=== PATIENT | female | born 1960 | race Caucasian/White ===

== ENCOUNTER 2024-08-09 20:54 | Emergency (ER) | payer OTHER, SELFPAY ==
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
--- NOTE | ~2024-08-09 | XR_ITS ---
CLINICAL HISTORY: fall 2 view left knee Comparison: None Findings: Bones intact. No dislocations. Mild degenerative changes. No joint effusion. No radiopaque foreign body. IMPRESSION: 1. No acute findings. This document has been electronically signed by: Jose Nguyen MD on 08/09/2024 22:43:19
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
--- NOTE | ~2024-08-09 | XR_ITS ---
CLINICAL HISTORY: fall 2 view right knee Comparison: None Findings: Bones intact. No dislocations. Moderate degenerative changes. No joint effusion. No radiopaque foreign body. IMPRESSION: 1. No acute findings. This document has been electronically signed by: Jose Nguyen MD on 08/09/2024 22:43:13
[2024-08-09 21:02] VITALS: BP 159/71; PULSE 70; O2SAT 98
[2024-08-09 21:09] VITALS: BP 179/97; PULSE 70; RESP 16; TEMP 37.1; O2SAT 97; BMI 35.5
[2024-08-09 21:15] VITALS: BP 179/97; PULSE 70; RESP 16; TEMP 37.1; O2SAT 97
--- OUTSIDE RECORDS SUMMARY | 2024-08-09 22:37 | XMS_ITS | Clinical Summary ---
Author Organization [facility] Address [address] [place] [address] Care Team Providers Care Manager Hris Name Role Phone Amrik Salgado MD Primary Care Provider [phone] Encounters Date Type Department Care Team Description 05/11/2024 Telephone Orthopedic Surgery - [place] [address] [facility] [address] [place] [address] Nina Hubbard MA Appointment from Last 3 Months Surgical History Surgery Date Site/Laterality Comments OTHER SURGICAL HISTORY Right PROCEDURE: HISTORY OTHER; COMMENT: bunionectomy Dr Marino Medical History Medical History Date Comments Hypertension 08/13/2015 DX:Hypertension Hypothyroidism 08/13/2015 DX:Hypothyroidis m Adjustment reaction with anx iety and depression 10/08/2014 DX:Adjustment reaction with anxiety and depression Major depression, single episode 11/02/2014 DX:Major depression, single episode Hyperlipidemia 08/13/2015 DX:Hyperlipidemi a Lower back pain 08/13/2015 DX:Lower back pa in; COMMENT: L5 nerve root impingement, bulging disc. Neurosurgical consult 09/2013 Atherosclerosis 08/13/2015 DX:Atheroscleros is; COMMENT: Calcification of lower Aorta noted on XR @ [facility] ER 2013 H/O vitamin D deficiency 08/13/2015 DX:H/O vitamin D deficiency Social History Tobacco Use Types Packs/Day Years Used Date Smoking Tobacco: Never Smokeless Tobacco: Never Alcohol Use Standard Drinks/Week Comments No 0 (1 standard drink = 0.6 oz pur e alcohol) Comments Unknown Sex and Gender Information Value Date Recorded Sex Assigned at Not on file Legal Sex Female 11:41 AM EST Gender Identity Not on file Sexual Orientation Not on file Obstetrics History Plan of Treatment Health Maintenance Due Date Last Done Comments Breast Cancer Screening 1959 DTaP,Tdap,and Td Vaccines (1 - Tdap) 1978 Cervical Cancer Screening: P ap Smear 1980 Pneumococcal Vaccine: 50+ Ye ars (1 of 1 - PCV) 2009 Zoster Vaccines (1 of 2) 2009 COVID-19 Vaccine (1 - 2023-2 5 season) 2023 Cholesterol Screening (Lipid Panel) 05/12/2024 Colorectal Cancer Screening: Colonoscopy 05/12/2024 Depression Screening 05/12/2024 Hepatitis C Screening 05/12/2024 Hypertension/CHF/CAD Annual BMP Blood Test 05/12/2024 Osteoporosis Screening (Bone Density Screening) 05/12/2024 Social Influencers of Health Screening 05/12/2024 Falls Risk Assessment 2024 Influenza Vaccine (Season Ended) 2024 RSV Immunization Adult Patie nts (1 - 1-dose 75+ series) 2034 HIB Vaccines Aged Out No longer eligi ble based on patient's age to complete this topic HPV Vaccines Aged Out No longer eligi ble based on patient's age to complete this topic Hepatitis A Vaccines Aged Out No long er eligible based on patient's age to complete this topic Hepatitis B Vaccines Aged Out No long er eligible based on patient's age to complete this topic IPV Vaccines Aged Out No longer eligi ble based on patient's age to complete this topic MMR Vaccines Aged Out No longer eligi ble based on patient's age to complete this topic Meningococcal ACWY Vaccine Aged Out N o longer eligible based on patient's age to complete this topic Meningococcal B Vaccine Aged Out No l onger eligible based on patient's age to complete this topic Pneumococcal Vaccine: Pediat rics (0 to 5 Years) and At-Risk Patients (6 to 64 Years) Aged Out No longer eligible b ased on patient's age to complete this topic RSV Immunization Patients Un cammie 20 months Aged Out No longer eligible b ased on patient's age to complete this topic Varicella Vaccines Aged Out No longer eligible based on patient's age to complete this topic Care Teams Manager Hris Relationship Specialty Start Date End Date Amrik Salgado MD [address] [place] [address] PCP - General Internal Medicine 10/08/14
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
[2024-08-09] MEDS: Ibuprofen 800 MG TABLET PO (23:41)
[2024-08-09 23:44] VITALS: BP 180/89; PULSE 72; RESP 20; TEMP 36.3; O2SAT 99
== END 2024-08-10 00:20 | disposition home or self-care (01) ==
PROVIDERS: Emergency Provider Emergency Medicine; PCP Orthopaedic Surgery
DX: S13.4XXA Sprain of ligaments of cervical spine, initial encounter (principal); S80.02XA Contusion of left knee, initial encounter; S80.01XA Contusion of right knee, initial encounter; V43.52XA Car driver injured in collision with other type car in traffic accident, initial encounter; W22.11XA Striking against or struck by driver side automobile airbag, initial encounter; Y93.9 Activity, unspecified; Y92.9 Unspecified place or not applicable; Y99.9 Unspecified external cause status; M54.2 Cervicalgia; M25.562 Pain in left knee; M25.561 Pain in right knee
CPT/HCPCS: 70450; 72125; 73560; 99284

== ENCOUNTER → 2024-08-09 21:51 | Outpatient (BNV) | payer OTHER, SELFPAY | PROVIDERS: PCP Orthopaedic Surgery; Visit Provider Student in an Organized Health Care Education/Training Program | DX: M54.2 Cervicalgia (principal); S02.2XXA Fracture of nasal bones, initial encounter for closed fracture; J34.89 Other specified disorders of nose and nasal sinuses; S80.01XA Contusion of right knee, initial encounter; S80.02XA Contusion of left knee, initial encounter; W19.XXXA Unspecified fall, initial encounter | CPT/HCPCS: 70450; 72125; 73560 ==